=== PATIENT | female | born 1960 | race Caucasian/White ===

== ENCOUNTER → 2018-06-10 | Outpatient (CLI) | payer BC ==
[~2018-06-10] MED LIST: CLARITIN 1010 MG/TAB PO; FLEXERIL 1010 MG/TAB PO; NORCO 325 MG-51 TAB PO
== END ==
LOC: MC.RAD 08:15
DX: Z12.31 Encounter for screening mammogram for malignant neoplasm of breast (principal)

== ENCOUNTER 2021-10-01 13:50 | Emergency (ER) | payer BC ==
[~2021-10-01] VITALS: Ht 160 cm; Wt 73.2 kg
[2021-10-01 13:58] VITALS: BP 160/86; TEMP 98
[2021-10-01 15:00] LABS: COLLECTION METHOD CLEAN CATCH
[2021-10-01 15:18] LABS: PH 8 (5-8); SQUAMOUS EPITHELIAL 0-2 /hpf (0-10); URINE APPEARANCE Clear (CLEAR/HAZY); URINE BACTERIA None Seen /hpf (NONE SEEN); URINE BILIRUBIN Negative (NEGATIVE); URINE BLOOD Negative (NEGATIVE); URINE COLOR Yellow (YELLOW); URINE GLUCOSE Negative (NEGATIVE); URINE KETONE Trace (NEGATIVE); URINE LEUKOCYTE ESTERASE 2+ (NEGATIVE); URINE NITRATE Negative (NEGATIVE); URINE PROTEIN(semi-quant) Negative (NEGATIVE); URINE RBC 0-2 /hpf (0-2); URINE UROBILINOGEN Negative (NEGATIVE)
[2021-10-01] MEDS ORDERED: MACROBID 1100 MG/CAP PO (15:38)
[2021-10-01] MEDS ORDERED: ULTRAM 50MG TAB50 MG PO (15:38)
[2021-10-01 15:51] VITALS: PULSE 71
== END 2021-10-01 15:52 | disposition home or self-care (01) ==
LOC: COL.ER 13:50
PROVIDERS: Physician Assistant
DX: S39.012A Strain of muscle, fascia and tendon of lower back, initial encounter (principal); N30.90 Cystitis, unspecified without hematuria; R07.81 Pleurodynia; Z91.040 Latex allergy status; Z88.5 Allergy status to narcotic agent; X58.XXXA Exposure to other specified factors, initial encounter; Y92.007 Garden or yard of unspecified non-institutional (private) residence as the place of occurrence of the external cause
CPT/HCPCS: J1885; J2360